=== PATIENT | male | born 1995 | race Caucasian/White ===

== ENCOUNTER 2019-07-02 20:51 | Observation (INO) ==
[2019-07-02] MEDS ORDERED: KETOROLAC TROMETHAMINE 30 MG/ML VIAL IV ONE (21:08)
[2019-07-02] MEDS ORDERED: ONDANSETRON HCL/PF 2 MG/ML VIAL IV ONE (21:10)
--- NOTE | 2019-07-02 21:10 | ERNOTE ---
Abdominal HPI - General Chief Complaint: Abdominal Pain Time Seen by Provider: 07/02/19 21:02 Source: patient Exam Limitations: no limitations - Immun/Allergies/Home Medications Immunizatons: IMMUNIZATION HX Immunizations Up to Date Yes History of Influenza Vaccine No Hx Pneumococcal Vaccination No Allergies/Adverse Reactions: Allergies No Known Allergies Allergy (Verified 12/21/15 22:06) Home Medications: HOME MEDICATIONS NK [No Home Medication] 12/21/15 [Last Taken Unknown] - History of Present Illness Narrative: Patient states he had onset of abdominal pain about 1630 this afternoon. It has been waxing and waning since that time. He has had some watery stools that are nonbloody. Timing: constant Quality: moderate, cramping Activities at Onset: none Associated Symptoms: Present: back pain - Early on but is resolved Review of Systems - Review of Systems Constitutional: Absent: recent illness, fever, chills ENT: Absent: nose congestion, nasal drainage Respiratory: Absent: shortness of breath, cough Cardiology: Absent: chest pain, palpitations Gastrointestinal/Abdominal: Present: See HPI, nausea, diarrhea. Absent: vomiting Genitourinary: Absent: frequency, dysuria Musculoskeletal: Present: See HPI, back pain Skin: Absent: rash, lesions Neurological: Absent: dizziness/light-headedness Endocrine: Absent: excessive sweating Medical History (Last Reviewed 07/02/19 @ 21:07 by Saul Rome DO) Acne (Chronic) ADHD (Chronic) Common migraine (Chronic) Pharyngitis (Acute) High blood pressure (Chronic) Trapezius muscle spasm (Acute) Surgical History: Surgical History (Last Reviewed 07/02/19 @ 21:07 by Saul Rome DO) History of placement of ear tubes (Acute) Family History: Family History (Last Reviewed 07/02/19 @ 21:07 by Saul Rome DO) Grandmother CHF (congestive heart failure) Diabetes Grandfather Hypertension Diabetes Mother Hypertension Social History: (Last Reviewed 07/02/19 @ 21:07 by Saul Rome DO) Social History: senior care: No Marital status: Single household members: none current occupational status: employed current occupation: service bar cashier Highest education level completed: GED or equivalent Service: No Tobacco: Smoking Status: Former smoker second hand exposure: No Alcohol: alcohol intake: current Substance Use: substance use type: former substance user Dietary Habits: caffeine: Yes Exercise: Physical activity functional status: normal ROM and activity Physical Exam - Physical Exam General Appearance: Present: wd/wn, alert, no apparent distress Head Exam: Present: normal inspection, no evidence of injury Neck: Present: normal inspection, nontender, supple Respiratory: Present: no respiratory distress, no accessory muscle use, chest nontender, lungs clear Cardiovascular/Chest: Present: regular rate, rhythm, no murmur Gastrointestinal/Abdominal: Present: nontender, nondistended, soft, abnormal bowel sounds - Hypoactive. Absent: guarding, rebound Extremity Exam: Present: normal inspection, non-tender, normal range of motion, no edema Neurological Exam: Present: alert, oriented, normal mood/affect Skin Exam: Present: normal color, warm/dry Lymphatic Exam: Present: no adenopathy Progress - Results and Orders Patient's Lab Results:: I have reviewed the patient's lab results. Results and Orders: Laboratory Tests 07/02/19 07/02/19 07/02/19 21:11 21:20 21:20 WBC 11.6 H Hgb 16.6 Hct 49.8 Plt Count 277 Sodium 141 Potassium 3.8 Chloride 98 Anion Gap 15.0 H BUN 12 Creatinine 1.05 Random Glucose 105 Calcium 10.7 Total Bilirubin 0.5 AST 20 ALT 25 Alkaline Phosphatase 58 Total Protein 9.8 H Amylase 48 Lipase 102 Urine Color Yellow Urine Appearance Clear Urine pH 6.5 Ur Specific [place] 1.015 Urine Glucose (UA) Negative Urine Ketones Negative Urine Blood Negative Urine Nitrate Negative Ur Leukocyte Esterase Negative Ur Epithelial Cells 0-5 Urine Bacteria None seen Urine Culture Comments No culture indicated - Vital Signs Patient's Vital Signs:: I have reviewed the patient's vital signs. Vital Signs: Vital Signs 07/02/19 20:53 Temperature 36.8 C Pulse Rate 110 H Respiratory Rate 16 Blood Pressure 145/92 H O2 Sat by Pulse Oximetry 100 - X-Ray X-Ray #1 X-Ray: abdomen Interpretation: Interp. by me X-ray Comments: There is some mild air-fluid levels. There is no evidence of obstruction. There is no free air. There may be some evidence of bowel wall thickening in the left upper quadrant. - CT/Ultrasound CT/Ultrasound Narrative: CT abdomen and pelvis with IV and oral contrast. Moderate grade distal small bowel obstruction with fusiform narrowing and no signs of obstructing lesion. Otherwise negative exam. - Progress/Reassessment Chief Complaint: Abdominal Pain Progress:: Improved Progress Note-Subjective: 07/03/19 01:[address] Piña and he agrees that bowel rest including NG tube is appropriate for this patient. He agrees to consult and asks that medicine primarily admit the patient. I spoke with Dr. Downing he agrees to admit the patient. Departure Clinical Impression: Small bowel obstruction - Departure Disposition: Still a patient Condition: Stable
[2019-07-02 21:16] LABS: Urine Bilirubin Negative (NEGATIVE); Urine Blood Negative /ul (NEGATIVE); Urine Ketone Negative (NEGATIVE); Urine Nitrite Negative (NEGATIVE); Urine Protein Negative (NEGATIVE); Urine Specific Gravity 1.015 SP.GR. (1.005-1.030); Urine Urobilinogen Normal (NORMAL); Urine pH 6.5 pH (5.0-7.0)
[2019-07-02 21:17] LABS: Urine Amorphous Sediment Few - 1+ (NONE-FEW); Urine Appearance Clear (CLEAR); Urine Bacteria None Seen; Urine Color Yellow; Urine RBC None Seen /hpf (0-5); Urine WBC None Seen /hpf (0-5)
[2019-07-02 21:24] LABS: Hematocrit 49.8 % (42.0-52.0); Hemoglobin 16.6 gm/dL (13.5-18.0); Mean Cell Volume 84.7 fl (78-100); Mean Corpuscular Hemoglobin 28.2 pg (27-31); Mean Corpuscular Hgb Conc 33.3 g/dl (32-36); Mean Platelet Volume 8.4 fl (8-11.3); Neutrophil % 60.8 % (42-75.0); Platelet Count 277 K/mm3 (150-450); Red Blood Count 5.88 M/mm3 (4.7-6.0); White Blood Count 11.6 K/mm3 (4.0-10.5)
[2019-07-02 21:37] LABS: BUN/Creatinine Ratio 11.4 (9.0-21.6); Bilirubin, Total 0.5 mg/dL (0.0-1.1); Ca. Corrected For Albumin 9.6 mg/dL (8.4-10.2); Calcium * 10.7 mg/dL (7.9-10.9); Carbon Dioxide 31.8 mmol/L (24-32.6); Potassium 3.8 mmol/L (3.4-4.6); Total Protein 9.8 gm/dL (6.2-8.2)
[2019-07-02] MEDS ORDERED: DIATRIZOATE MEGLUMINE, SODIUM 30 ML BTL PO ONE (21:45)
[2019-07-02] MEDS ORDERED: BUTORPHANOL TARTRATE 2 MG/ML VIAL IM ONE (23:07)
[2019-07-03] MEDS ORDERED: MORPHINE SULFATE 4 MG/ML SYRG IV PRN (01:04)
[2019-07-03] MEDS ORDERED: ONDANSETRON HCL/PF 2 MG/ML VIAL IV PRN (01:05)
[2019-07-03] MEDS: NORMAL SALINE 1,000 ML IV PRN ×2 (01:46→10:32)
[2019-07-03] MEDS ORDERED: MORPHINE SULFATE 2 MG/ML DISP.SYRIN IV PRN (07:15)
--- NOTE | 2019-07-03 08:55 | CONS ---
[facility] - General Date of Service: 07/03/19 Source: patient, RN/MD, RN notes reviewed, other - Discussed with Dr. Rome prior to patient admission Exam Limitations: no limitations - History of Present Illness Initial Comments: Yesterday he had oatmeal and some coffee for breakfast. He had some coffee and candy at lunch. In the afternoon he ate a large meal of chicken, salad, and a large amount of potato salad. He then began to have abdominal discomfort and vomited a large amount. He presented to the emergency room. He had a mildly L of weighted white blood cell count. CT scan of the abdomen and pelvis revealed a transition zone in the right lower quadrant suggesting small bowel obstruction. A nasogastric tube was placed and he was admitted. Overnight The Nasogastric Tube Apparently Remained and was not connected to suction. He has had complete resolution of his abdominal pain. He denies any nausea. He has passed some gas, and he feels like he might be able to move his bowels. He has never had a problem like this before. Allergies/Adverse Reactions: Allergies No Known Allergies Allergy (Verified 12/21/15 22:06) Home Medications: Home Medications Medication Instructions Recorded Last Taken NK [No Home Medication] 12/21/15 Unknown Medications - Medications Current Medications: Current Medications Sodium Chloride (Sodium Chloride 0.9%) 1,000 mls @ 125 mls/hr IV .Q8H PRN PRN Reason: HYDRATION Stop: 08/02/19 01:05 Last Admin: 07/03/19 01:46 Dose: 125 mls/hr Documented by: Ondansetron HCl (Zofran) 4 mg IV Q6H PRN PRN Reason: Nausea And Vomiting Stop: 08/02/19 01:06 Last Admin: 07/03/19 01:32 Dose: 4 mg Documented by: Review of Systems - Review of Systems Generalized/Overall Review: Present: No Symptoms Reported. Absent: Chills, Fever EENTM: Present: Other - Discomfort from the nasogastric tube Respiratory: Present: No Symptoms Reported Cardiac: Present: No Symptoms Reported Abdominal: Present: No Symptoms Reported Genitourinary: Present: No Symptoms Reported Musculoskeletal: Present: No Symptoms Reported Neurological: Present: No Symptoms Reported Skin: Present: No Symptoms Reported Endocrine: Present: No Symptoms Reported Physical Examination - Exam Vital Signs: Vital Signs - Last Taken Temp 36.5 C 07/03/19 06:18 Pulse 86 07/03/19 06:18 Resp 16 07/03/19 06:18 BP 136/87 07/03/19 06:18 Pulse Ox 96 07/03/19 06:18 O2 Oxygen Delivery Method Room Air Comprehensive Narative: 07/03/19 08:53 He is alert. He has some scratchy voice from the nasogastric tube. He denies any abdominal pain or tenderness. He states he might be able to have a bowel movement Constitutional: Present: Alert, Oriented x3, Cooperative, Well developed, Well nourished, No distress ENT Exam: Present: normal ENT inspection, other - NG tube with only scant greenish drainage Eye Exam: bilateral eye: normal inspection Neck: Present: full range of motion, normal inspection Breasts: Present: Exam deferred Respiratory: Present: no respiratory distress Cardiovascular/Chest: Present: regular rate, rhythm Abdomen: Present: soft, nontender /Rectal: Present: Exam deferred Extremity: Present: normal range of motion Skin Exam: Present: normal color Neurologic: Present: molder machine II-XII nml as tested, no motor/sensory deficits Appearance: Present: appropriate appearance, appropriate insight, neat, no memory impairment Eye contact: Present: cooperative, good eye contact, normal speech Thoughts: Present: normal thought pattern - Results and Findings: Lab/Microbiology results last 24 hrs: Abnormal/Pending Laboratory Last 24 HRS 07/02/19 07/02/19 21:20 21:20 WBC 11.6 H Immature Gran # (Auto) 0.04 H Neutrophils # 7.0 H Anion Gap 15.0 H Total Protein 9.8 H - Assessments/Findings (1) Small bowel obstruction Diagnosis(s): Currently he denies any abdominal pain, nausea, and feels like he might be able to have a bowel movement. His x-ray of the abdomen this morning shows passage of the contrast through into the colon and there is no longer any dilated small intestine. Impression: The possible small bowel obstruction appears to have resolved. Recommendation: The nasogastric tube can be clamped. Trial of clear liquids. If this is tolerated his tube may be removed later and diet advanced. Discussed with Dr. Downing, orders entered Problem: Acute
--- NOTE | 2019-07-03 17:01 | HPDIS ---
Chief Complaint - Chief Complaint Date of Service: 07/03/19 Time of Service: 08:30 Chief Complaint: Abdominal Pain History of Present Illness: Adam is a 23 yo male with no significant PMH and no abdominal surgeries who presented to the [facility] ER with abdominal pain following a large mother days meal. He reported the meal was larger than his usual but otherwise was not out of the ordinary. He was vomiting digested food. No fever, chills. He had abdominal imaging in the ER that showed small bowel obstruction. He was consulted with surgery, given an NG tube and admitted to medicine. Medical History (Last Reviewed 07/03/19 @ 02:23 by Rhina Cosby RN) Acne (Chronic) ADHD (Chronic) Common migraine (Chronic) Pharyngitis (Acute) High blood pressure (Chronic) Trapezius muscle spasm (Acute) Surgical History: Surgical History (Last Reviewed 07/03/19 @ 02:23 by Rhina Cosby RN) History of placement of ear tubes (Acute) Family History: Family History (Last Reviewed 07/03/19 @ 02:23 by Rhina Cosby RN) Grandmother CHF (congestive heart failure) Diabetes Grandfather Hypertension Diabetes Mother Hypertension Social History: (Last Reviewed 07/03/19 @ 02:23 by Rhina Cosby RN) Social History: intermediate: No Marital status: Single household members: none current occupational status: employed current occupation: hotel dining room cashier Highest education level completed: GED or equivalent Service: No Tobacco: Smoking Status: Former smoker second hand exposure: No Alcohol: alcohol intake: current Substance Use: substance use type: former substance user Dietary Habits: caffeine: Yes Exercise: Physical activity functional status: normal ROM and activity Review Of Systems (GEN) - Review of Systems Generalized/Overall Review: Absent: Weakness, Chills, Fever EENTM: Present: No Symptoms Reported Respiratory: Absent: Cough, Shortness of Breath Cardiac: Absent: Chest Pain, Edema Abdominal: Present: Nausea, Vomiting, Abdominal Pain. Absent: Melena, Bright blood from rectum Genitourinary: Absent: Burning, Urgency Musculoskeletal: Absent: Joint Pain, Back Pain Neurological: Absent: Headache, Anxiety Skin: Absent: Dryness, Lesions Endocrine: Absent: Intolerance to Cold, Intolerance to Heat Immunizations: IMMUNIZATION HX Immunizations Up to Date Yes History of Influenza Vaccine No Hx Pneumococcal Vaccination No Allergies/Adverse Reactions: Allergies Allergy/AdvReac Type Severity Reaction Status Date / Time No Known Allergies Allergy Verified 12/21/15 22:06 Home Medications: HOME MEDICATIONS NK [No Home Medication] 12/21/15 [Last Taken Unknown] Exam - Exam Vital Signs: Vital Signs - Last Taken Temp 36.8 C 07/03/19 14:09 Pulse 107 H 07/03/19 14:09 Resp 20 07/03/19 14:09 BP 127/61 07/03/19 14:09 Pulse Ox 95 07/03/19 14:09 Constitutional: Present: Alert, Oriented x3, Cooperative ENT Exam: Present: hearing grossly normal Eye Exam: bilateral eye: normal inspection Neck: Present: normal inspection Respiratory: Present: lungs clear, normal breath sounds, no respiratory distress Cardiovascular/Chest: Present: regular rate, rhythm, no edema, no murmur Abdomen: Present: Normal bowel sounds, soft, nontender, nondistended, other - NG tube in place Skin Exam: Present: normal color, warm/dry, no cyanosis Appearance: Present: appropriate appearance, appropriate insight Eye contact: Present: cooperative, good eye contact, normal speech Diagnostic Studies: Abnormal Lab Results 07/02/19 07/02/19 Range/Units 21:20 21:20 WBC 11.6 H (4.0-10.5) K/mm3 Immature Gran # (Auto) 0.04 H (0.000-0.0310) K/mm3 Neutrophils # 7.0 H (1.3-6.0) K/mm3 Anion Gap 15.0 H (6.8-13.8) mmol/L Total Protein 9.8 H (6.2-8.2) gm/dL Laboratory Results WBC 11.6 K/mm3 (4.0-10.5) H 07/02/19 21:20 RBC 5.88 M/mm3 (4.7-6.0) 07/02/19 21:20 Hgb 16.6 gm/dL (13.5-18.0) 07/02/19 21:20 Hct 49.8 % (42.0-52.0) 07/02/19 21:20 MCV 84.7 fl (78-100) 07/02/19 21:20 MCH 28.2 pg (27-31) 07/02/19 21:20 MCHC 33.3 g/dl (32-36) 07/02/19 21:20 RDW 12.0 % (11.5-14.0) 07/02/19 21:20 Plt Count 277 K/mm3 (150-450) 07/02/19 21:20 MPV 8.4 fl (8-11.3) 07/02/19 21:20 Immature Gran % (Auto) 0.30 % (0.001-0.429) 07/02/19 21: Immature Gran # (Auto) 0.04 K/mm3 (0.000-0.0310) H 07/02/19 21:20 Neutrophils % 60.8 % (42-75.0) 07/02/19 21:20 Lymphocytes % 29.5 % (20-51) 07/02/19 21:20 Monocytes % 7.6 % (0.0-9) 07/02/19 21:20 Eosinophils % 1.5 % (0.0-3.0) 07/02/19 21:20 Basophils % 0.3 % (0.0-1.0) 07/02/19: Nucleated RBC % 0.0 k/mm3 (0-1) 07/02/19 21:20 Neutrophils # 7.0 K/mm3 (1.3-6.0) H 07/02/19 21:20 Lymphocytes # 3.42 k/mm3 (1.5-3.5) 07/02/19 21:20 Monocytes # 0.9 k/mm3 (0.0-1.0) 07/02/19 21:20 Eosinophils # 0.2 k/mm3 (0.0-0.7) 07/02/19 21:20 Absolute Basophils 0.0 k/mm3 (0.0-0.1) 07/02/19 21:20 Sodium 141 mmol/L (132-142) 07/02/19 21:20 Plasma Sodium 141 mmol/L (130-142) 07/02/19 21:20 Potassium 3.8 mmol/L (3.4-4.6) 07/02/19 21:20 Chloride 98 mmol/L (97-106) 07/02/19 21:20 Carbon Dioxide 31.8 mmol/L (24-32.6) 07/02/19 21:20 Anion Gap 15.0 mmol/L (6.8-13.8) H 07/02/19 21:20 BUN 12 mg/dL (6-23) 07/02/19 21:20 Creatinine 1.05 mg/dL (0.4-1.4) 07/02/19 21:20 Est GFR (Non-Af Amer) 95 mL/min (60-130) D 07/02/19 21:20 BUN/Creatinine Ratio 11.4 (9.0-21.6) 07/02/19 21:20 Random Glucose 105 mg/dL (70-110) 07/02/19 21:20 Calcium 10.7 mg/dL (7.9-10.9) 07/02/19 21:20 Calcium Adj for Albumin 9.6 mg/dL (8.4-10.2) 07/02/19 21:20 Total Bilirubin 0.5 mg/dL (0.0-1.1) 07/02/19 21:20 AST 20 U/L (0-48) 07/02/19 21:20 ALT 25 U/L (19-67) 07/02/19 21:20 Alkaline Phosphatase 58 U/L (50-170) 07/02/19 21:20 Total Protein 9.8 gm/dL (6.2-8.2) H 07/02/19 21:20 Albumin 5.0 gm/dl (3.4-5.0) 07/02/19 21:20 Amylase 48 U/L (25-115) 07/02/19 21:20 Lipase 102 U/L (73-393) 07/02/19 21:20 Urine Color Yellow 07/02/19 21:11 Urine Appearance Clear (CLEAR) 07/02/19 21:11 Urine pH 6.5 pH (5.0-7.0) 07/02/19 21:11 Ur Specific [place] 1.015 SP.GR. (1.005-1.030) 07/02/19 21:11 Urine Protein Negative mg/dL (NEGATIVE) 07/02/19 21:11 Urine Glucose (UA) Negative mg/dL (NEGATIVE) 07/02/19 21:11 Urine Ketones Negative mg/dL (NEGATIVE) 07/02/19 21:11 Urine Blood Negative /ul (NEGATIVE) 07/02/19 21: Urine Nitrate Negative (NEGATIVE) 07/02/19 21:11 Urine Bilirubin Negative mg/dl (NEGATIVE) 07/02/19 21:11 Urine Urobilinogen Normal EU/dl (NORMAL) 07/02/19 21:11 Ur Leukocyte Esterase Negative /ul (NEGATIVE) 07/02/19 21:11 Urine RBC None seen /hpf (0-5) 07/02/19 21:11 Urine WBC None seen /hpf (0-5) 07/02/19 21:11 Ur Epithelial Cells 0-5 /hpf (0-5) 07/02/19 21:11 Amorphous Sediment Few - 1+ (NONE-FEW) 07/02/19 21:11 Urine Bacteria None seen (NONE) 07/02/19 21:11 Urine Culture Comments No culture indicated 07/02/19 21:11 Assessment/Plan - Narrative Narrative: Adam is a 23 yo male admitted for small bowel obstruction. He will be NPO and has an NG tube. Repeat imaging this morning shows contrast is moving through the colon and obstruction appears to be resolved. Abdominal pain is improved and he is feeling well at this time. Will admit him to observation, Clamp NG tube, and give liquid diet. Surgery has been consulted and is on the case. - Assessment/Plan (1) Small bowel obstruction Problem: Acute (1) Small bowel obstruction Problem: Resolved Date of Discharge:: 07/03/19 Hospital Course: Adam was admitted for a small bowel obstruction. Surgery was consulted. He was given an NG tube and made NPO. Initial CT showed obstruction. Repeat xray this morning showed obstruction had resolved. NG was clamped and he had a liquid diet trail. He tolerated this well. His NG tube was removed and he trialed regular diet. He tolerated this well and will be discharged to home. Procedures Performed: see notes below - NG tube placement and removal Results and Findings: Lab Pending Results 07/02/19 21:11: Urine Color Yellow, Urine Appearance Clear, Urine pH 6.5, Ur Specific [place] 1.015, Urine Protein Negative, Urine Glucose (UA) Negative, Urine Ketones Negative, Urine Blood Negative, Urine Nitrate Negative, Urine Bilirubin Negative, Urine Urobilinogen Normal, Ur Leukocyte Esterase Negative, Urine RBC None seen, Urine WBC None seen, Ur Epithelial Cells 0-5, Amorphous Sediment Few - 1+, Urine Bacteria None seen, Urine Culture Comments No culture indicated 07/02/19 21:20: WBC 11.6 H, RBC 5.88, Hgb 16.6, Hct 49.8, MCV 84.7, MCH 28.2, MCHC 33.3, RDW 12.0, Plt Count 277, MPV 8.4, Immature Gran % (Auto) 0.30, Immature Gran # (Auto) 0.04 H, Neutrophils % 60.8, Lymphocytes % 29.5, Monocytes % 7.6, Eosinophils % 1.5, Basophils % 0.3, Nucleated RBC % 0.0, Neutrophils # 7.0 H, Lymphocytes # 3.42, Monocytes # 0.9, Eosinophils # 0.2, Absolute Basophils 0.0 07/02/19 21:20: Sodium 141, Plasma Sodium 141, Potassium 3.8, Chloride 98, Carbo n Dioxide 31.8, Anion Gap 15.0 H, BUN 12, Creatinine 1.05, Est GFR (Non-Af Amer) 95 D, BUN/Creatinine Ratio 11.4, Random Glucose 105, Calcium 10.7, Calcium Adj for Albumin 9.6, Total Bilirubin 0.5, AST 20, ALT 25, Alkaline Phosphatase 58, Total Protein 9.8 H, Albumin 5.0, Amylase 48, Lipase 102 Disposition: Home self-care Condition: Good Discharge Activity: Activity as tolerated Discharge Diet: General/regular food - smaller meals Referrals: Hans Downing DO [Staff Physician] - One Week Consultation Done:: General Surgery Problem Oriented Discharge Instructions to Patient/Family: Bowel Obstruction, [id number] Complete Home Medications List: Complete Home Medication List: NK [No Home Medication] 12/21/15 Forms: Patient Portal Registration
[2019-07-03 17:47] VITALS: BP 139/73
== END 2019-07-03 17:40 | disposition home or self-care (01) ==
LOC: ER 20:51 → MS 07-03 00:39 → INTOOBSV 07-03 00:39 → MS 07-03 02:00
PROVIDERS: ADMIT Family Medicine; ATTEND Family Medicine
DX: K56.600 Partial intestinal obstruction, unspecified as to cause
CPT/HCPCS: 36415; 43752; 71010; 71045; 74019; 74020; 74177; 80053; 81001; 82150; 83690; 85025; 96374; 96375; 96376; 99282; 99285; G0378; J2405; Q9963; Q9967